=== PATIENT | male | born 1970 | race African-American/Black ===

== ENCOUNTER 2018-09-15 14:33 | Emergency (ER) | payer SELFPAY ==
[~2018-09-15 14:33] MED LIST: AMOX-362 PO; IBU200 PO; IBU800 PO; IBUP-56 PO; LOR5 PO; LOR5/325 PO; ONDA4TAB PO; PER PO; TRA50 PO
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
[2018-09-15] MEDS ORDERED: IBUPROFEN 800 MG TAB PO ONE (14:50)
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
[2018-09-15] MEDS ORDERED: IOPAMIDOL 76% 75 ML INFUS BTL 75 ML ONE (16:30)
[2018-09-15] MEDS ORDERED: NS(*) 0.9% 50 ML BAG 50 ML ONE (16:30)
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
[2018-09-15 17:37] VITALS: BP 148/92
== END 2018-09-15 17:40 | disposition home or self-care (01) ==
LOC: ER 14:40
DX: R51 Headache (principal)
CPT/HCPCS: 70450; 71250; 71275; 72125; 74176; 99284; J7050; L0172; Q9967

== ENCOUNTER 2018-12-25 01:26 | Day surgery (SDC) | payer SELFPAY ==
[~2018-12-25] VITALS: Ht 172.7 cm; Wt 90.3 kg
[2018-12-25] MEDS: NORMOSOL R SOLN(*) 1000 ML BAG 1,000 ML IV PRN ×2 (05:35→09:44)
[2018-12-25 05:58] VITALS: BP 129/87
[2018-12-25] MEDS ORDERED: ceFAZolin(*) 2GM/D5W 50ML 50 ML IVPB ONE (06:05)
[2018-12-25] MEDS ORDERED: MIDAZOLAM 2 MG/2 ML VIAL IVP PRN (06:30)
[2018-12-25] MEDS ORDERED: LIDOCAINE/SOD BICARB 8.4% SYR ID ONE (06:30)
[2018-12-25] MEDS ORDERED: FAMOTIDINE 20 MG TAB PO ONE (06:30)
[2018-12-25 06:31] LABS: PLATELET COUNT, AUTOMATED 274 K/uL (150-450)
--- NOTE | 2018-12-25 06:32 | RADIOLOGY IMAGING REPORT ---
FACILITY: [facility] PATIENT NAME: John Mary : 1970 MR: [id number] V: [id number] EXAM DATE: ORDERING PHYSICIAN: PETE LUNA TECHNOLOGIST: Location: [facility] Patient: John Mary : 1970 Visit/Account:[id number] Date of Sevice: 12/24/2018 CERVICAL SPINE 2 OR 3 VIEW HISTORY: Pre-op hernia surgery COMPARISON: None FINDINGS: 2 views of the cervical spine were obtained. Flexion and extension images obtained. C1-C7 a re visualized. There is no evidence of acute fracture or spondylolisthesis. The vertebral body heigh ts are well maintained. The pre dental space is normal. No abnormal motion on flexion and extension views. IMPRESSION: 1. No abnormal motion on flexion and extension views. Predental space is normal. Report Dictated By: Dylan Sharp MD at 12/25/2018 6:25 AM Report E-Signed By: Dylan Sharp MD at 12/25/2018 6:28 AM WSN:[id number]
[2018-12-25] MEDS ORDERED: BUPIVACAINE/EPI 0.5% 50ML VIAL INFIL ONE (06:49)
[2018-12-25] MEDS ORDERED: fentaNYL CITR 100 MCG/2 ML AMP ONE ×3 (07:39→09:40)
[2018-12-25] MEDS ORDERED: KETOROLAC 30 MG/ML VIAL ONE (08:27)
[2018-12-25] MEDS ORDERED: SUGAMMADEX SOD 200 MG/2 ML SDV ONE (08:27)
[2018-12-25] MEDS ORDERED: ROCURONIUM BROM 10 MG/ML 10 ML ONE (08:53)
[2018-12-25] MEDS ORDERED: ONDANSETRON 4 MG/2 ML VIAL ONE ×2 (08:53)
[2018-12-25] MEDS ORDERED: PROPOFOL EMUL(*) 10MG/ML 20 ML 20 ML ONE ×2 (08:53)
[2018-12-25] MEDS ORDERED: DEXAMETHASONE SOD PHOS 10MG/ML ONE ×2 (08:53)
[2018-12-25] MEDS ORDERED: HYDR-654 PO (08:57)
--- NOTE | 2018-12-25 09:03 | Short(Outpt) Discharge Summary ---
Discharge Summary Reason for Hosp/Final Diag: (1) Right inguinal hernia Hospital Course & Plan: pt presented for hernia repair. he tolerated the procedure well. he will be discharged home when criteria met. Departure Discharge to: Home Discharge Instructions Home Meds Active Scripts Hydrocodone Bit/Acetaminophen (NORCO 7.5-325 TABLET) 1 Each Tablet, 1 EACH PO Q6H PRN for PAIN, #14 TAB Prov:JAIDEN DOUGLAS 12/25/18 Diet: Regular Activity: No Heavy Lifting Special Instructions: no lifting more than 15 pounds for 3 wks. ok to shower tomorrow. take stool softener while taking pain meds. f/u dr. spring douglas 2 wks ([phone]). JAIDEN DOUGLAS Dec 25, 2018 09:03
--- NOTE | 2018-12-25 09:09 | Post Operative Progress Note ---
Post Operative Progress Note Date: Dec 25, 2018 Time: 09:03 Surgeon: dr. spring douglas #[id number] Putty Maker: none Anesthesia: gen, local dr. ly Pre-Op Diagnosis: right ing hernia, poss bilat Post-Op Diagnosis: right ing hernia Findings: direct right ing hernia Procedure(s): robotic right ing hernia repair with mesh Specimen Removed:(May be N/A): none Complications: none Fluids: iv crystalloid Estimated Blood Loss: minimal Date OP Note Dictated: Dec 25, 2018 Time OP Note Dictated: 09:05 JAIDEN DOUGLAS Dec 25, 2018 09:09
[2018-12-25] MEDS ORDERED: APAP/HYDROCODONE 325/7.5 TAB ONE (09:41)
--- NOTE | 2018-12-25 09:52 | OPERATIVE REPORT 1 ---
EVENT DATE: December 25, 2018 SURGEON: Fabio Rivera MD ANESTHESIOLOGIST: Crow Moore MD ANESTHESIA: General and local. HYDRAULIC PILE HAMMER OPERATOR: None. PREOPERATIVE DIAGNOSIS Right inguinal hernia, possible bilateral inguinal hernias. POSTOPERATIVE DIAGNOSIS Right inguinal hernia. PROCEDURE PERFORMED Robotic right inguinal hernia repair with mesh. FLUIDS IV crystalloids. ESTIMATED BLOOD LOSS Minimal. SPECIMENS None. COMPLICATIONS None. INDICATIONS This is a 48-year old male with a right inguinal hernia that is bothersome to him. Risks and benefits of the procedure were explained and consent was signed. DESCRIPTION OF PROCEDURE The patient was taken to the operating room and placed in the supine position. General anesthesia was administered per the Anesthesia team. The patient was prepped and draped in normal sterile fashion. Local anesthesia was injected into the dermis above the umbilicus and a small vertical incision was made. Umbilical stump was grasped and elevated. Veress needle was inserted. Pneumoperitoneum was achieved. Veress needle was removed. An 8 mm port was advanced. After injecting local analgesia and under direct vision, a right sided 8 mm port and a left sided 8 mm port were placed. I inspected the abdomen. There was no injury upon entry. There was a small direct right inguinal hernia and no inguinal hernia on the left. The 10 x 15 cm ProGrip right sided mesh was placed in the abdomen as was the 6-inch V-Loc absorbable stitch. The robot was docked. Peritoneal flap was created with scissors. This was taken down to Manish's ligament. The hernia was reduced. The flap was taken down below the level of the ileopubic tract. Care was taken to protect the cord structures. Hemostasis was assured. The mesh was made to lie flat. It covered the entire myopectineal orifice. The peritoneal was reapproximated with a running absorbable V-Loc stitch. Hemostasis was assured. The robot was undocked. A TAP block was placed on the right under laparoscopic vision. Ports were removed. Hemostasis was assured. Pneumoperitoneum was released. Final port was removed. All skin incisions were closed with 4-0 Monocryl subcuticular stitches. More local analgesia was injected. Appropriate dressings were applied. The patient tolerated the procedure well. There were no complications. [facility]
[2018-12-25 10:19] VITALS: BP 132/91
[2018-12-25 10:30] VITALS: BP 129/89
[2018-12-25 10:46] VITALS: BP 138/89
[2018-12-25 10:48] VITALS: BP 148/97
== END 2018-12-25 10:19 | disposition home or self-care (01) ==
LOC: OR 01:26
PROVIDERS: ATTEND Surgery
DX: K40.90 Unilateral inguinal hernia, without obstruction or gangrene, not specified as recurrent (principal)
CPT/HCPCS: 36416; 49650; 72040; 82948; 85025; J1100; J1885; J2250; J2405; J2704; J3010; J0690